=== PATIENT | male | born 2000 | race African-American/Black ===

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

== ENCOUNTER 2022-08-13 14:35 | Emergency (ER) | payer MEDICAID ==
[~2022-08-13] VITALS: Ht 177.8 cm; Wt 65.9 kg
[~2022-08-13 14:35] MED LIST: PREDNISONE20 MG PO
[2022-08-13 14:41] VITALS: TEMP 98
[2022-08-13 15:45] VITALS: BP 133/57; PULSE 64
== END 2022-08-13 15:45 | disposition home or self-care (01) ==
LOC: COL.ER 14:35
DX: S61.210A Laceration without foreign body of right index finger without damage to nail, initial encounter (principal); W26.0XXA Contact with knife, initial encounter; Y93.E9 Activity, other interior property and clothing maintenance